=== PATIENT | male | born 1975 | race Caucasian/White ===

== ENCOUNTER 2016-10-05 21:08 | Emergency (ER) | payer MEDICAID ==
[2016-10-05 21:18] VITALS: BMI 34.4
[2016-10-05 21:22] VITALS: BP 125/83; PULSE 69; RESP 18; TEMP 98.8; O2SAT 96
--- NOTE | 2016-10-05 22:26 | ED PDOC ---
Arrival/HPI - General Chief Complaint: ENT Problem Time Seen by Provider: 10/05/16 21:15 Historian: Patient - History of Present Illness Narrative History of Present Illness (Text): 10/05/16 22:19 40yr old male presents with 7 month history of nasal congestion. pt states he was using a nasal spray but it isnt working at home. pt c/o only congestion and difficulty sleeping at night due to the inability to breath through the nose. no fever/chills. denies pain. no headaches or dizziness. no cp or sob. no other complaints. Past Medical History - Provider Review Nursing Documentation Reviewed: Yes - Travel History Have you recently traveled outside [place] w/in the past 3 mons?: No - Infectious Disease Hx of Infectious Diseases: None - Cardiac Hx Cardiac Disorders: No - Pulmonary Hx Asthma: Yes (no meds) - Psychiatric Hx Substance Use: No - Anesthesia Hx Anesthesia: No Family/Social History - Physician Review Nursing Documentation Reviewed: Yes Family/Social History: Unknown Family HX Smoking Status: Never Smoked Hx Alcohol Use: No Hx Substance Use: No Allergies/Home Meds Allergies/Adverse Reactions: Allergies No Known Allergies Allergy (Verified 10/05/16 21:18) Home Medications: Home Meds Medication Instructions Recorded Confirmed Ergocalciferol (Vitamin D2) 1 tab PO DAILY 10/05/16 10/05/16 [Vitamin D] Review of Systems - Review of Systems Constitutional: absent: Fatigue, Fevers Eyes: absent: Eye Pain ENT: Sinus Congestion. absent: Sore Throat, Epistaxis Respiratory: absent: SOB, Cough Cardiovascular: absent: Chest Pain, Palpitations Gastrointestinal: absent: Abdominal Pain, Nausea, Vomiting Genitourinary Male: absent: Dysuria Musculoskeletal: absent: Arthralgias Skin: absent: Rash, Pruritis Neurological: absent: Headache, Dizziness Physical Exam Vital Signs Reviewed: Yes Vital Signs Temp Pulse Resp BP Pulse Ox 10/05/16 21:21 98.8 F 69 18 125/83 96 Temperature: Afebrile Blood Pressure: Normal Pulse: Regular Respiratory Rate: Normal Appearance: Positive for: Well-Appearing, Non-Toxic, Comfortable Pain Distress: None Mental Status: Positive for: Alert and Oriented X 3 - Systems Exam Head: Present: Atraumatic Pupils: Present: PERRL Conjunctiva: Present: Normal Ears: Present: Normal, NORMAL TM Mouth: Present: Moist Mucous Membranes. No: Drooling, Trismus, Other Pharnyx: Present: Normal. No: ERYTHEMA, EXUDATE, Peritonsilar Swelling, Uvular Deviation, Muffled/Hoarse Voice, Strider Nose (External): Present: Atraumatic Nose (Internal): Present: Clear Mucous. No: Engorged, Septal Deviation Neck: Present: Normal Range of Motion, Trachea Midline. No: Lymphadenopathy Respiratory/Chest: Present: Clear to Auscultation, Good Air Exchange. No: Respiratory Distress, Accessory Muscle Use Cardiovascular: Present: Regular Rate and Rhythm, Normal S1, S2. No: Murmurs Skin: Present: Warm, Dry, Normal Color. No: Rashes Psychiatric: Present: Alert Medical Decision Making ED Course and Treatment: 10/05/16 22:26 40yr old male with 7 month history of nasal congestion. will d/c pt home with alyce and flonase; advised f/u with ENT specialist. advised immediate return if symptoms worsen,persist or if new symptoms develop. impression; nasal congestion flonase; 2 sprays each nostril once daily allergra; twice daily Follow up with the ENT specialist within the next 2 days Follow up with the primary care physician within the next 2 days return immediately if symptoms worsen,persist or if new symptoms develop. Disposition/Present on Arrival - Present on Arrival Any Indicators Present on Arrival: No History of DVT/PE: No History of Uncontrolled Diabetes: No Urinary Catheter: No History of Decub. Ulcer: No History Surgical Site Infection Following: None - Disposition Have Diagnosis and Disposition been Completed?: Yes Diagnosis: Nasal congestion Disposition: HOME/ ROUTINE Disposition Time: 22:34 Patient Plan: Discharge Condition: GOOD Additional Instructions: flonase; 2 sprays each nostril once daily allergra; twice daily Follow up with the ENT specialist within the next 2 days Follow up with the primary care physician within the next 2 days return immediately if symptoms worsen,persist or if new symptoms develop. Prescriptions: Fexofenadine/Pseudoephedrine [Alyce-D 12 Hour Tablet] 1 tab PO BID #60 tab Fluticasone Nasal [Flonase] 2 spr NS DAILY #1 spr Referrals: Lei Castro MD [Primary Care Provider] - Follow up with primary Landon Mcnulty DO [Staff Provider] - Follow up with primary
== END 2016-10-05 23:30 | disposition home or self-care (01) ==
LOC: ED 21:08
DX: R09.81 Nasal congestion (principal)